=== PATIENT | female | born 2000 | race Hispanic/Latino ===

== ENCOUNTER 2023-10-10 10:34 | Inpatient (IN) | payer BC, OTHER ==
[2023-10-10] MEDS ORDERED: hydrALAZINE 20 MG/ML VIAL SLOW IVP PRN ×2 (12:02→14:20)
[2023-10-10 12:43] LABS: #Basophils 0.03 10x3/uL (0.0-0.2); #Eosinphils 0.05 10x3/uL (0.0-0.5); #Monocytes 0.43 10x3/uL (0.0-1.1); #Neutrophils 6.86 10x3/uL (1.5-8.4); %Basophils 0.3 % (0.0-2.0); %Eosinophils 0.5 % (0.0-6.0); %Monocytes 4.7 % (0.0-10.0); %Neutrophils 74.7 % (40.0-75.0); Hematocrit 36.6 % (34.9-44.5); Hemoglobin 12.6 g/dL (12.0-15.5); Mean Corpuscular HGB CONC 34.4 g/dL (32.0-36.0); Mean Corpuscular Hemoglobin 27.9 pg (27.0-33.0); Mean Corpuscular Volume 81.2 fL (81.6-98.3); Mean Platelet Volume 12.8 fL (7.4-10.4); Platelet Count 171 10x3/uL (150-450); RBC Distribution Width 13.2 % (11.5-14.5); Red Blood Cell (RBC) Count 4.51 10x6/uL (3.90-5.03); White Blood Cell (WBC) Count 9.2 10x3/uL (3.5-10.5)
[2023-10-10 12:59] LABS: ALT (SGPT) Less than 7 U/L (8-55); AST (SGOT) 15 U/L (5-34); Albumin 2.8 g/dL (3.5-5.0); Alkaline Phosphatase 145 U/L (40-110); Anion Gap 12 mmol/L (10-20); BUN (Urea Nitrogen) 8 mg/dL (7.0-18.7); Bilirubin, Total 0.3 mg/dL (0.2-1.2); Calc. Creatinine Clearance 0 mL/min (70-130); Calcium 9.1 mg/dL (7.8-10.44); Carbon Dioxide 18 mmol/L (22-29); Chloride 109 mmol/L (98-107); Estimated GFR 120; Globulin 3.4 g/dL (2.4-3.5); Glucose 82 mg/dL (70-105); Potassium 3.8 mmol/L (3.5-5.1); Protein, Total 6.2 g/dL (6.0-8.3); Sodium 135 mmol/L (136-145)
[2023-10-10 13:38] LABS: Creatinine, Urine 25.09 mg/dL (47-110); Protein, Urine Random Quant Less than 10 mg/dL (1-14)
[2023-10-10] MEDS ORDERED: Promethazine HCl 25 MG/ML VIAL IM PRN (14:20)
[2023-10-10] MEDS ORDERED: Diphenoxylate HCl/Atropine Tablet PO PRN (14:20)
[2023-10-10] MEDS ORDERED: fentaNYL 50 mcg/mL 1 mL Vial SLOW IVP PRN (14:20)
[2023-10-10] MEDS ORDERED: Misoprostol 200 MCG TAB PR PRN (14:20)
[2023-10-10] MEDS ORDERED: Lidocaine 1% (PF) 30 ML VIAL SC PRN (14:20)
[2023-10-10] MEDS ORDERED: Carboprost 250 MCG/ML AMP IM PRN (14:20)
[2023-10-10] MEDS ORDERED: Tranexamic Acid 1,000 MG/10 ML VIAL IVP PRN (14:20)
[2023-10-10] MEDS ORDERED: Ondansetron PF 4 MG/2 ML Vial IVP PRN (14:20)
[2023-10-10] MEDS ORDERED: Misoprostol 100 MCG TAB VAG SCH (14:30)
[2023-10-10] MEDS ORDERED: Oxytocin 30 units/NS 500 ML 500 ML IV SCH (14:30)
[2023-10-10 14:45] VITALS: BMI 34.0
[2023-10-10 15:26] LABS: HBsAg Index 0.17 S/CO (0-0.99); Hep B Surf Ag - L&D Non-Reactive S/CO (NonReactive)
[2023-10-10 15:27] LABS: Syphilis Antibody Nonreactive (Nonreactive); Syphilis Antibody Index 0.03 S/CO (<1.00 Non-Reactive)
[2023-10-10] MEDS: Penicillin G Potassium 5 MILL.UNITS in Sodium Chloride 0.9% 100 ML IVPB SCH (20:50)
[2023-10-11] MEDS: Penicillin G 2.5 MILL.units 2.5 MILL.UNITS in Premix 1 BAG IVPB SCH (00:52)
[2023-10-11] MEDS: Lactated Ringer's 1,000 ML IV SCH (00:56)
[2023-10-11] MEDS: Oxytocin 30 units/NS 500 ML 500 ML IV SCH (05:14)
[2023-10-11] MEDS ORDERED: hydrALAZINE 20 MG/ML VIAL SLOW IVP PRN (15:58)
[2023-10-11] MEDS ORDERED: Bisacodyl 10 MG SUPP PR PRN (15:58)
[2023-10-11] MEDS ORDERED: Milk Of Magnesia 30 ML UDCUP PO PRN (15:58)
[2023-10-11] MEDS: Ibuprofen 800 MG TAB PO PRN (17:42)
[2023-10-11] MEDS: Penicillin G Potassium 5 MILL.UNITS VIAL ONE (19:16)
[2023-10-12] MEDS: Acetaminophen 500 MG TAB PO PRN (08:56)
[2023-10-13 13:30] VITALS: BP 133/80; TEMP 98.8
== END 2023-10-13 14:50 | disposition home or self-care (01) | DRG 807 ==
LOC: CSHLD 10:34 → CSHPP 10-11 17:50
PROVIDERS: ADMIT Family Medicine; ATTEND Family Medicine
PROC: 10E0XZZ Delivery of Products of Conception, External Approach (ICD-10-PCS; principal; 2023-10-11)
PROC: 10907ZC Drainage of Amniotic Fluid, Therapeutic from Products of Conception, Via Natural or Artificial Opening (ICD-10-PCS; 2023-10-11)
PROC: 0HQ9XZZ Repair Perineum Skin, External Approach (ICD-10-PCS; 2023-10-11)
DX: O13.4 Gestational [pregnancy-induced] hypertension without significant proteinuria, complicating childbirth (principal); Z37.0 Single live birth; Z3A.39 39 weeks gestation of pregnancy; O99.824 Streptococcus B carrier state complicating childbirth; O70.0 First degree perineal laceration during delivery
CPT/HCPCS: 36415; 80053; 82570; 84156; 85025; 86780; 86850; 86900; 86901; 87340; 99285; J2540; J2590; J3490; J7120